=== PATIENT | female | born 1990 | race Caucasian/White ===

== ENCOUNTER 2022-12-28 09:08 | Emergency (ER) | payer BC, OTHER ==
--- NOTE | 2022-12-28 09:22 | ERPHSYRPT ---
- History of Present Illness Time Seen by Provider: 12/28/22 09:22 Source: patient Exam Limitations: no limitations Physician History: This is a morbidly obese 32-year-old white female patient who was on the ground yesterday and when she went to get up twisted her right knee. Ever since that time she has had pain in the right knee. She can bear weight but it hurts to do so. She did not fall she just twisted her right knee. Method of Injury: twisted Occurred: yesterday Quality: constant, aching Severity of Pain-Max: mild (To moderate) Severity of Pain-Current: mild (To moderate) Lower Extremities Pain: knee: right Modifying Factors: Improves With: movement Associated Symptoms: other (Hurts to bear weight but can do so) Allergies/Adverse Reactions: ibuprofen [From Motrin] Allergy (Verified 12/28/22 09:17) Home Medications: No Reportable Medications [No Reported Medications] 12/28/22 [History] Travel Risk - International Travel Have you traveled outside of the country in past 3 weeks: No - Coronavirus Screening Are you exhibiting any of the following symptoms?: No Close contact with a COVID-19 positive Pt in past 14-21 Days: No - Review of Systems Constitutional: No Symptoms Eyes: No Symptoms Ears, Nose, & Throat: No Symptoms Respiratory: No Symptoms Cardiac: No Symptoms Abdominal/Gastrointestinal: No Symptoms Genitourinary Symptoms: No Symptoms Musculoskeletal: Injury (Right knee) Skin: No Symptoms Neurological: No Symptoms Psychological: No Symptoms Endocrine: No Symptoms Hematologic/Lymphatic: No Symptoms Immunological/Allergic: No Symptoms All Other Systems: Reviewed and Negative - Past Medical History Pertinent Past Medical History: No - Past Surgical History Past Surgical History: Yes Musculoskeletal: Orthopedic Surgery Other Surgical History: shoulder - Social History Drug Use: none - Nursing Vital Signs Nursing Vital Signs: Initial Vital Signs Temperature 97.0 F 12/28/22 09:52 Pulse Rate 86 12/28/22 09:52 Respiratory Rate 18 12/28/22 09:52 Blood Pressure 128/81 12/28/22 09:52 O2 Sat by Pulse Oximetry 94 L 12/28/22 09:52 Pain Scale Pain Intensity 3 - Physical Exam General Appearance: no apparent distress, alert, anxiety, obese Eyes, Ears, Nose, Throat Exam: normal ENT inspection, moist mucous membranes Neck Exam: normal inspection, non-tender, supple, full range of motion Cardiovascular/Respiratory Exam: chest non-tender, no respiratory distress Gastrointestinal/Abdominal Exam: non-tender Back Exam: normal inspection, normal range of motion, No CVA tenderness, No vertebral tenderness Hips Exam: bilateral: non-tender, normal inspection, normal range of motion, no evidence of injury Legs Exam: bilateral leg: non-tender, normal inspection, normal range of motion, no evidence of injury Knees Exam: right knee: soft tissue tenderness (Anterior right knee), left knee: non-tender, bilateral knee: normal inspection, no evidence of injury Ankle Exam: bilateral ankle: non-tender, normal inspection, normal range of motion, no evidence of injury Foot Exam: bilateral foot: non-tender, normal inspection, normal range of motion, no evidence of injury Neuro/Tendon Exam: normal sensation, normal motor functions, normal tendon functions, responds to pain, no evidence tendon injury Mental Status Exam: alert, oriented x 3, cooperative Skin Exam: normal color, warm, dry SpO2 Interpretation: normal O2 Delivery: Room Air - Course Nursing assessment & vital signs reviewed: Yes Ordered Tests: Active Orders 24 hr Category Date Time Status KNEE (3 VIEWS) Stat Exams 12/28/22 10:27 Completed - Progress Progress: unchanged Progress Note: 12/28/22 10:00 This patient's medical issue is 1 of low complexity. Level complexity in the work-up performed is based on review of the patient's past medical history, review of the patient's medication list, review the patient's drug allergy list, history of present illness and physical findings on examination. This patient's work-up includes x-ray of her right knee. 12/28/22 10:53 X-ray of the right knee was interpreted by the radiologist and I reviewed the interpretation. There is no evidence of any acute fracture or dislocation. Counseled pt/family regarding: diagnosis, need for follow-up, rad results Medical Desision Making - Diagnostic Testing Diagnostic test were ordered, analyzed, and reviewed by me: Yes Radiological Interpretation: Reviewed by me, Teleradiologist Report - Risk of complications Minimal Risk: Minimal risk of morbidity - Departure Departure Disposition: Home Clinical Impression: Sprain of right knee Condition: Stable Critical Care Time: No Additional Instructions: Ice pack to the right knee 3 times a day for the next 48 hours. Use Tylenol 650 mg orally 4 times a day. Call your primary care provider today to make arranges for follow-up appointment for further evaluation and management. Another option is to follow-up with the [facility] orthopedic clinic Wednesday through Wednesday 8 AM to 10 AM. It is a walk in clinic and it does not require an appointment.
[2022-12-28 09:53] VITALS: RESP 18; TEMP 97
--- NOTE | 2022-12-28 10:46 | XRAY ---
Indication: Twisting injury. Comparison: None 3 view right knee demonstrates minimal medial joint space narrowing. No other bony, articular, or soft tissue abnormalities.
[2022-12-28 11:11] VITALS: BP 121/93; PULSE 70; O2SAT 97
== END 2022-12-28 11:09 | disposition home or self-care (01) ==
LOC: ED 09:08 → MERGE 09:08 → ED 11:09
DX: S83.91XA Sprain of unspecified site of right knee, initial encounter (principal); X50.0XXA Overexertion from strenuous movement or load, initial encounter; Y92.512 Supermarket, store or market as the place of occurrence of the external cause
CPT/HCPCS: 73562; 99282